=== PATIENT | male | born 1990 ===

== ENCOUNTER 2017-08-07 11:45 | Emergency (ER) | payer OTHER ==
--- NOTE | 2017-08-07 12:08 | UC ---
Throat Pain/Nasal Jude HPI - HPI Summary HPI Summary: Pt complains of 4 day history of non productive cough and ST. 2 days ago noticed his left eye beginning to get red, but no discharge or itching. No recent illness. No travel. No sinus pain/pressure/congestion, fever, chills, pain, SOB, or N/V/D/C. - History of Current Complaint Chief Complaint: UCRespiratory Stated Complaint: SORE THROAT EYE ISSUE Time Seen by Provider: 08/07/17 12:07 Hx Obtained From: Patient Onset/Duration: Gradual Onset Severity: Mild Cough: Nonproductive Associated Signs & Symptoms: Negative: Dysphagia, Drooling, Wheezing, Sinus Discomfort, Nasal Discharge, Fever - Allergies/Home Medications Allergies/Adverse Reactions: Allergies Allergy/AdvReac Type Severity Reaction Status Date / Time Tree Nuts Allergy Itching Verified 08/07/17 12:03 Home Medications: Home Medications Sumatriptan [Imitrex] 5 mg INH PRN 08/07/17 [History] PMH/Surg Hx/FS Hx/Imm Hx Previously Healthy: Yes Neurological History: Migraine - Surgical History Surgical History: Yes Surgery Procedure, Year, and Place: RIGHT ORCHIECTOMY 2015 - Family History Known Family History: Positive: Unknown - Social History Lives: Alone Alcohol Use: Rare Substance Use Type: None Smoking Status (MU): Never Smoked Tobacco Review of Systems Constitutional: Chills Skin: Negative Eyes: Eye Redness - Left eye ENT: Sore Throat Respiratory: Cough Cardiovascular: Negative Gastrointestinal: Negative Neurological: Negative Psychological: Negative Is Patient Immunocompromised?: No All Other Systems Reviewed And Are Negative: Yes Physical Exam Triage Information Reviewed: Yes Appearance: Well-Appearing, Well-Nourished Vital Signs: Initial Vital Signs Temp 98.5 F 08/07/17 11:56 Pulse 86 08/07/17 11:56 Resp 16 08/07/17 11:56 Pulse Ox 100 08/07/17 11:56 Vital Signs Reviewed: Yes Eyes: Positive: Conjunctiva Inflamed - Left eye., Other: - + Light reflex. No papilledema or retinal hemorrhage.. Negative: Discharge ENT: Positive: Normal ENT inspection, Hearing grossly normal, Pharynx normal, TMs normal. Negative: Pharyngeal erythema, Nasal congestion, Nasal drainage, TM bulging, TM dull, TM red, Tonsillar swelling, Tonsillar exudate Neck: Positive: Supple, Nontender, No Lymphadenopathy Respiratory: Positive: Chest non-tender, Lungs clear, Normal breath sounds, No respiratory distress, No accessory muscle use Cardiovascular: Positive: RRR, No Murmur, Pulses Normal Skin: Negative: rashes Throat Pain/Nasal Course/Dx - Course Course Of Treatment: POC strep negative today. Likely viral URI and viral conjunctivitis. Pt given an rx for Ofloxacin eye drops in case he develops discharge or increased discomfort. Advise fluids and rest. Assessment/Plan: POC strep negative today. Likely viral URI and viral conjunctivitis. Pt given an rx for Ofloxacin eye drops in case he develops discharge or increased discomfort. Advise fluids and rest. - Differential Dx/Diagnosis Differential Diagnosis/HQI/PQRI: Influenza, Otitis Media, Pharyngitis, Sinusitis , URI Provider Diagnoses: Viral URI. Viral Conjunctivitis left eye Discharge - Discharge Plan Condition: Stable Disposition: HOME Prescriptions: Ofloxacin 0.3%(Ophth)(Nf) [Ocuflox OPTH 0.3%(NF)] 0.3 % OPHTHALMIC TID #1 bottle Patient Education Materials: Allergic Rhinitis (ED), Conjunctivitis (ED) Additional Instructions: Drink plenty of fluids and rest! If you develop a fever, SOB, chest pain, new or worsening symptoms - please call our office or go to ED
== END 2017-08-07 12:40 | disposition home or self-care (01) ==
LOC: UCEAST 11:45
DX: J06.9 Acute upper respiratory infection, unspecified (principal); B30.9 Viral conjunctivitis, unspecified
CPT/HCPCS: 87651; 99202; G0463

== ENCOUNTER 2018-11-26 17:47 | Emergency (ER) | payer OTHER ==
[2018-11-26 17:58] VITALS: BP 127/75
[2018-11-26] MEDS ORDERED: Tetan/Diph/Pertus SYR(Tdap)* 0.5 ML SYR(BOOSTRIX) use SYR IM ONE (18:25)
--- NOTE | 2018-11-26 18:38 | ED ---
Upper Extremity Pain - HPI Summary HPI Summary: patient with pain in the left thumb,after squeezing thumb in car door. noted some numbness in the thumb after the accident. Noted cut in the palmar surface of the thumb as well. No recent tetanus booster - History of Current Complaint Chief Complaint: UCUpperExtremity Stated Complaint: LFT THUMB INJURY Time Seen by Provider: 11/26/18 17:59 Hx Obtained From: Patient Mechanism Of Injury: Blunt Trauma Onset/Duration: Started Minutes Ago Timing: Constant Severity Initially: Moderate Severity Currently: Moderate Pain Location: Finger - left thumb Character: Throbbing Aggravating Factor(s): Nothing - Allergies/Home Medications Allergies/Adverse Reactions: Allergies Allergy/AdvReac Type Severity Reaction Status Date / Time Tree Nuts Allergy Itching Verified 11/26/18 17:58 Home Medications: Home Medications NK [No Home Medications Reported] 11/26/18 [History Confirmed 11/26/18] PMH/Surg Hx/FS Hx/Imm Hx Previously Healthy: Yes Endocrine/Hematology History: Denies: Hx Diabetes, Hx Thyroid Disease Cardiovascular History: Denies: Hx Hypertension Respiratory History: Denies: Hx Asthma, Hx Chronic Obstructive Pulmonary Disease (COPD) GI History: Denies: Hx Ulcer - Cancer History Cancer Type, 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 , 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 - Surgical History Surgery Procedure, Year, and Place: RIGHT ORCHIECTOMY 2014 Infectious Disease History: No Infectious Disease History: Denies: Hx Hepatitis, Hx Human Immunodeficiency Virus (HIV), History Other Infectious Disease, Traveled Outside the [place] in Last 30 Days - Family History Known Family History: Positive: Unknown - Social History Alcohol Use: Occasionally Substance Use Type: Reports: None Smoking Status (MU): Never Smoked Tobacco Review of Systems Constitutional: Negative Eyes: Negative ENT: Negative Cardiovascular: Negative Respiratory: Negative Gastrointestinal: Negative All Other Systems Reviewed And Are Negative: Yes Physical Exam Triage Information Reviewed: Yes Vital Signs On Initial Exam: Initial Vitals Temp Pulse Resp BP Pulse Ox 36.7 C 87 18 127/75 100 11/26/18 17:55 11/26/18 17:55 11/26/18 17:55 11/26/18 17:55 11/26/18 17:55 Vital Signs Reviewed: Yes Appearance: Positive: Well-Appearing Skin: Positive: Warm - ecchymotic left thumb nail with subungual hematoma Head/Face: Positive: Normal Head/Face Inspection Eyes: Positive: Normal ENT: Positive: Normal ENT inspection Neck: Positive: Supple Respiratory/Lung Sounds: Positive: Clear to Auscultation Musculoskeletal: Positive: Other - swollen left thumb, subungual, full rom , Procedures - Nail Trepanation Left Thumb Method of Drainage: nail cauterized Diagnostics - Vital Signs Vital Signs Temp Pulse Resp BP Pulse Ox 11/26/18 17:55 36.7 C 87 18 127/75 100 - Laboratory Lab Statement: Any lab studies that have been ordered have been reviewed, and results considered in the medical decision making process. Course/Dx - Diagnoses Provider Diagnoses: Subungual hematoma of finger of left hand, Crushing injury of thumb, left Discharge - Sign-Out/Discharge Documenting (check all that apply): Patient Departure All imaging exams completed and their final reports reviewed: Yes - Discharge Plan Condition: Fair Disposition: HOME Patient Education Materials: Subungual Hematoma (ED) Referrals: No Primary Care Phys,NOPCP [Primary Care Provider] - - Billing Disposition and Condition Condition: FAIR Disposition: Home
== END 2018-11-26 18:44 | disposition home or self-care (01) ==
LOC: UCEAST 17:47
DX: S60.112A Contusion of left thumb with damage to nail, initial encounter (principal); W23.0XXA Caught, crushed, jammed, or pinched between moving objects, initial encounter; Y92.9 Unspecified place or not applicable
CPT/HCPCS: 11740; 90715; 99211; G0463